=== PATIENT | male | born 1940 | race Caucasian/White ===

== ENCOUNTER 2018-06-17 10:58 | Emergency (ER) | payer MEDICARE, OTHER, SELFPAY ==
[2018-06-17] VITALS (12 sets, daily range): BP systolic 112–152; BP diastolic 70–91; PULSE 67–88; RESP 14–18; TEMP 36.3–37.1; O2SAT 89–98
--- NOTE | 2018-06-17 11:09 | DI.RAD.S_ITS ---
PROCEDURE: XR CHEST 2V INDICATIONS: injury pain TECHNIQUE: 2 views of the chest were acquired. COMPARISON: None. FINDINGS: Surgical changes and devices: Right humeral arthroplasty is present. Lungs and pleura: No pleural effusions or pneumothorax. Lungs are clear. Mediastinum: Mediastinal contours are normal. Heart size is normal. Bones and chest wall: No suspicious bony abnormalities. Soft tissues appear unremarkable. There is a nondisplaced fracture within the lateral right 10th rib. IMPRESSION: Nondisplaced right lateral 10th rib fracture. Dictated by: Veronica Dodson M.D. on 06/17/2018 at 11:41 Approved by: Veronica Dodson M.D. on 06/17/2018 at 11:42
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
--- NOTE | 2018-06-17 11:42 | DI.CT.S_ITS ---
PROCEDURE: CT CHEST ABD PEL W CON INDICATIONS: ruq pain s/p trauma - hepatic injury? TECHNIQUE: After the administration of oral and intravenous contrast, 5 mm thick sections acquired from the lung apices to the symphysis. 5 mm coronal and sagittal reformats were performed, with additional 7 mm coronal MIP reformats through the lungs. For radiation dose reduction, the following was used: automated exposure control, adjustment of mA and/or kV according to patient size. COMPARISON: None. FINDINGS: Image quality: Excellent. CHEST: Lungs and pleura: No acute airspace opacities. No pleural effusions or pneumothorax. Central and peripheral airways appear patent and normal in caliber. Mediastinum: Heart size is normal. No pericardial effusion. No mediastinal or hilar adenopathy by size criteria. Thoracic aorta and central pulmonary arteries are normal in size. Esophagus is normal in caliber. No hiatal hernia. Chest wall: No axillary or supraclavicular adenopathy by size criteria. Thyroid gland is unremarkable. ABDOMEN: Solid organs: Liver is normal in size and enhancement. No visualized hepatic injury. Gallbladder is unremarkable. Biliary system is non dilated. Pancreas enhances normally. Spleen is normal in size and enhancement. No adrenal nodules. Kidneys demonstrate normal size and enhancement, without hydronephrosis. There is a right perirenal focus of low attenuation along the peripheral aspect of the kidney with Hounsfield units measuring 53. It measures 7.4 cm AP by 4.4 cm transverse. Perinephric stranding is also present. Peritoneum and bowel: Bowel loops demonstrate normal wall thickness and caliber. No free fluid or air. Nodes and vessels: No retroperitoneal or mesenteric adenopathy by size criteria. Aorta and inferior vena cava are normal in size. Miscellaneous: No ventral hernias. PELVIS: Genitourinary: Bladder wall thickness is normal. Prostate gland is enlarged. Miscellaneous: No inguinal hernias or adenopathy. Bones: No suspicious bony lesions. No vertebral body compression fractures. It is noted a right lateral 10th rib fracture was identified on chest x-ray, not as well-visualized on current exam. IMPRESSION: 1. A low attenuation collection surrounding a significant portion of the right kidney with Hounsfield units suggestive of hemorrhagic fluid. Appearance is most suggestive of perirenal hematoma. Right lateral 10th rib fracture is noted although less well-visualized on current exam. The above findings were discussed with Dr. Tito Cagle on 06/17/18 at 1:05 PM. Dictated by: Veronica Dodson M.D. on 06/17/2018 at 12:54 Approved by: Veronica Dodson M.D. on 06/17/2018 at 13:08
[2018-06-17] MEDS: HYDROMORPHONE 0.5 MG INJ 1 MG IV ×2 (11:52→13:40)
[2018-06-17] MEDS: TET,DIPH,PERTUSS(ACELL),VAC/PF 0.5 ML SYRINGE IM (11:57)
--- NOTE | 2018-06-17 12:07 | PC.NURSE ---
Right arm from forearm to shoulder w/ abrasions. No active bleeding. + pain w/ palpation to shoulder where he had previous replacement surgery.
[2018-06-17 13:00] LABS: Add Manual Diff / Slide Review NO; Basophils Percent Auto 0.5 % (0-2); Eosinophils Percent Auto 1.3 % (2-4); Hematocrit 49.2 % (41-53); Hemoglobin 16.7 g/dL (13.5-17.5); Lymphocytes Percent Auto 22.5 % (25-40); Mean Corpuscular HGB Conc 33.9 % (30-36); Mean Corpuscular Hemoglobin 30.1 PG (26-34); Mean Corpuscular Volume 88.8 fL (80-100); Monocytes Percent Auto 6.4 % (3-14); Neutrophils Absolute Auto 6100 /uL (3000-5900); Neutrophils Percent Auto 69.3 % (50-75); Platelet Count 163 X10^3/uL (150-400); Prothrombin Time 11.4 SECONDS (10.1-12.7); Red Blood Cell Count 5.55 X10^6/uL (4.5-5.9); Red Cell Distribution Width 13.1 % (11.6-14.8); White Blood Cell Count 8.8 X10^3/uL (4.5-11.0)
[2018-06-17 13:11] LABS: Alanine Aminotransferase 48 IU/L (21-72); Albumin 4.7 g/dL (3.5-5.0); Albumin Globulin Ratio 1.6 (1.0-2.8); Alkaline Phosphatase 45 U/L (38-126); Aspartate Aminotransferase 47 IU/L (17-59); Bilirubin Total 0.7 mg/dL (0.2-1.3); Blood Urea Nitrogen 22 mg/dL (9-20); Calcium 10.8 mg/dL (8.4-10.2); Carbon Dioxide 27 mmol/L (22-32); Chloride 102 mmol/L (98-107); Estimated Glomerular Filt Rate > 60.0 mL/min (>60); Glucose 110 mg/dL (80-110); HEMOLYSIS 19 (0-50); Potassium 4.4 mmol/L (3.4-5.1); Sodium 141 mmol/L (137-145); Total Protein 7.7 g/dL (6.3-8.2)
[2018-06-17 13:12] LABS: Lactate (Lactic Acid) 1.7 mmol/L (0.7-2.1)
[2018-06-17 14:33] LABS: Bacteria Urine None Seen
[2018-06-17 14:46] LABS: Bilirubin Urine UA NEGATIVE (NEGATIVE); Glucose Urine UA NEGATIVE (Normal); Ketones Urine UA TRACE (NEGATIVE); Leukocyte Esterase Urine UA NEGATIVE (NEGATIVE); Nitrite Urine UA Negative (Negative); Occult Blood Urine UA 3+ (Negative); Protein Urine UA 2+ (Negative); Specific Gravity Urine UA 1.015 (1.000-1.035); Urobilinogen Urine UA 0.2 E.U./dL (0.2)
[2018-06-17 14:47] LABS: Appearance Urine UA CLOUDY; Color Urine UA RED
[2018-06-17 14:50] LABS: Amorphous Sediment Urine 2+; Culture Indicated Urine Cult Not Indicated; RBC Urine >100/HPF (0-5/HPF); Squamous Epithelial Cell Urine 0-1 /HPF; WBC Urine 1-5/HPF (0-5/HPF)
[2018-06-17] MEDS: HYDROMORPHONE 1 MG INJ IV (15:56)
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
--- NOTE | 2018-06-17 16:38 | PC.NURSE ---
Placed on 2 l nc oxygen for pulse ox 89-90%. Encouraged to use incentive spirometry.
== END 2018-06-17 17:07 | disposition short-term general hospital (02) ==
PROVIDERS: Emergency Provider Emergency Medicine
DX: S22.39XA Fracture of one rib, unspecified side, initial encounter for closed fracture (principal); S37.001A Unspecified injury of right kidney, initial encounter; V18.2XXA Unspecified pedal cyclist injured in noncollision transport accident in nontraffic accident, initial encounter
CPT/HCPCS: 70450; 71046; 71260; 74177; 80053; 81001; 83605; 85025; 85610; 86850; 86900; 86901; 90471; 96374; 96376; 99284; 99285; 90715; J1170; Q9967

== ENCOUNTER 2018-06-26 14:47 | Inpatient (IN) | payer MEDICARE, OTHER, SELFPAY ==
[2018-06-26] VITALS (14 sets, daily range): BP systolic 110–160; BP diastolic 66–83; PULSE 73–120; RESP 18–20; TEMP 36.8–38.6; O2SAT 91–97
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
--- NOTE | 2018-06-26 15:14 | DI.RAD.S_ITS ---
PROCEDURE: XR CHEST 1V INDICATIONS: Postop fever TECHNIQUE: One view of the chest was acquired. COMPARISON: [facility], CT, CT CHEST ABD PEL W CON, 06/17/2018, 12:02. [facility], CR, XR CHEST 2V, 06/17/2018, 11:00. FINDINGS: Surgical changes and devices: There is a right shoulder prosthesis. Lungs and pleura: Small right effusion and right basilar atelectasis. No pneumothorax. Mediastinum: Mediastinal contours appear normal. Heart size is normal. Bones and chest wall: Mildly displaced right eighth, ninth, and 10th rib fractures are noted. Overlying soft tissues appear unremarkable. 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 Small right effusion and right basilar atelectasis. 2. Mildly displaced right rib fractures. Dictated by: Daina Encarnacion M.D. on 06/26/2018 at 15:34 Approved by: Daina Encarnacion M.D. on 06/26/2018 at 15:37
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
--- NOTE | 2018-06-26 15:26 | PC.NURSE ---
Elliott cath in place. Bag changed to new long bag. Scant urine output in bag before changing. Urine appeared yellow and clear w/o clots / blood.
[2018-06-26 15:29] LABS: Add Manual Diff / Slide Review NO; Basophils Percent Auto 0.7 % (0-2); Eosinophils Percent Auto 0.2 % (2-4); Hematocrit 34.2 % (41-53); Hemoglobin 11.7 g/dL (13.5-17.5); Lymphocytes Percent Auto 8.2 % (25-40); Mean Corpuscular HGB Conc 34.2 % (30-36); Mean Corpuscular Hemoglobin 29.5 PG (26-34); Mean Corpuscular Volume 86.3 fL (80-100); Neutrophils Absolute Auto 9500 /uL (3000-5900); Neutrophils Percent Auto 81.9 % (50-75); Platelet Count 312 X10^3/uL (150-400); Red Blood Cell Count 3.96 X10^6/uL (4.5-5.9); Red Cell Distribution Width 12.8 % (11.6-14.8); White Blood Cell Count 11.6 X10^3/uL (4.5-11.0)
[2018-06-26] MEDS: SODIUM CHLORIDE 0.9% 1,000 ML 125 ML IV ×2 (15:32→21:12)
[2018-06-26] MEDS: SODIUM CHLORIDE 0.9% 1,000 ML 1000 ML IV (15:32)
[2018-06-26 15:45] LABS: Alanine Aminotransferase 56 IU/L (21-72); Albumin 3.8 g/dL (3.5-5.0); Albumin Globulin Ratio 1.3 (1.0-2.8); Alkaline Phosphatase 57 U/L (38-126); Aspartate Aminotransferase 36 IU/L (17-59); Bilirubin Total 0.7 mg/dL (0.2-1.3); Blood Urea Nitrogen 24 mg/dL (9-20); Calcium 9.8 mg/dL (8.4-10.2); Carbon Dioxide 25 mmol/L (22-32); Chloride 97 mmol/L (98-107); Glucose 145 mg/dL (80-110); HEMOLYSIS < 15 (0-50); Lipase 71 U/L (23-300); Potassium 4.3 mmol/L (3.4-5.1); Sodium 133 mmol/L (137-145); Total Protein 6.8 g/dL (6.3-8.2)
[2018-06-26 15:46] LABS: Lactate (Lactic Acid) 1.1 mmol/L (0.7-2.1)
[2018-06-26 16:16] LABS: Appearance Urine UA SL CLOUDY; Bilirubin Urine UA NEGATIVE (NEGATIVE); Color Urine UA YELLOW; Glucose Urine UA NEGATIVE (Normal); Ketones Urine UA NEGATIVE (NEGATIVE); Leukocyte Esterase Urine UA TRACE (NEGATIVE); Nitrite Urine UA Negative (Negative); Occult Blood Urine UA 3+ (Negative); Protein Urine UA 1+ (Negative); Urobilinogen Urine UA 0.2 E.U./dL (0.2); pH Urine UA 5.5 (4.5-8.0)
[2018-06-26 16:25] LABS: Bacteria Urine Few (2-10); RBC Urine 10-30/HPF (0-5/HPF); Squamous Epithelial Cell Urine 0-1 /HPF; WBC Urine 5-10/HPF (0-5/HPF)
[2018-06-26 16:28] LABS: Procalcitonin < 0.05 ng/mL (<0.5)
[2018-06-26] MEDS: CEFTRIAXONE 1 GM/50 ML FROZ.PIGGY IV (18:49)
[2018-06-26] MEDS: IBUPROFEN 400 MG TABLET PO (18:59)
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
[2018-06-26] MEDS: TAMSULOSIN 0.4 MG CAPSULE PO (22:50)
[2018-06-27] VITALS (18 sets, daily range): BP systolic 100–155; BP diastolic 60–100; PULSE 83–120; RESP 16–109; TEMP 36.9–39.3; O2SAT 93–97
[2018-06-27] MEDS: ACETAMINOPHEN 325 MG TABLET 650 MG PO ×2 (00:36→01:00)
[2018-06-27] MEDS: SODIUM CHLORIDE 0.9% 1,000 ML 125 ML IV ×3 (03:29→21:08)
[2018-06-27 05:39] LABS: Add Manual Diff / Slide Review NO; Basophils Percent Auto 0.5 % (0-2); Eosinophils Percent Auto 0.6 % (2-4); Hematocrit 32.3 % (41-53); Lymphocytes Percent Auto 8.1 % (25-40); Mean Corpuscular HGB Conc 34.2 % (30-36); Mean Corpuscular Hemoglobin 29.6 PG (26-34); Mean Corpuscular Volume 86.7 fL (80-100); Monocytes Percent Auto 10.8 % (3-14); Neutrophils Absolute Auto 8000 /uL (3000-5900); Platelet Count 270 X10^3/uL (150-400); Red Blood Cell Count 3.72 X10^6/uL (4.5-5.9); Red Cell Distribution Width 12.9 % (11.6-14.8); White Blood Cell Count 10.1 X10^3/uL (4.5-11.0)
[2018-06-27 05:54] LABS: BUN Creatinine Ratio 13.3 (6-22); Blood Urea Nitrogen 20 mg/dL (9-20); Calcium 9.1 mg/dL (8.4-10.2); Carbon Dioxide 28 mmol/L (22-32); Chloride 101 mmol/L (98-107); Glucose 103 mg/dL (80-110); HEMOLYSIS < 15 (0-50); Potassium 4.4 mmol/L (3.4-5.1); Sodium 134 mmol/L (137-145)
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
[2018-06-27] MEDS: MULTIVITAMIN 1 TABLET 1 TAB PO (09:18)
[2018-06-27] MEDS: ASPIRIN 325 MG TABLET PO (09:18)
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
[2018-06-27] MEDS: PANTOPRAZOLE 20 MG TABLET PO (17:02)
[2018-06-27] MEDS: LISINOPRIL 20 MG TABLET PO (17:02)
[2018-06-27] MEDS: FINASTERIDE 5 MG TABLET PO (17:02)
[2018-06-27] MEDS: hydroCHLOROthiazide 12.5 MG CAPSULE PO (17:02)
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
--- NOTE | 2018-06-27 18:00 | PM.PN.1 ---
Subjective Date Patient Seen: 06/27/18 Time Patient Seen: 13:07 Interval history: Patient notes that there is less discomfort to the right flank region since he was admitted. He seems to feel is already getting better. No nausea no chest pain or shortness of breath. Exam Vital Signs (past 8 hours): - 06/27/18 11:00 06/27/18 14:52 06/27/18 15:10 Temperature 99 F 99.3 F 99.0 F Pulse Rate 100 H 100 H Respiratory Rate 18 18 Blood Pressure 117/61 137/65 H Pulse Oximetry 93 97 06/27/18 16:18 Temperature Pulse Rate Respiratory Rate Blood Pressure Pulse Oximetry 93 Oxygen Delivery Method Room Air Oxygen Flow Rate 0 Narrative Exam Narrative: Physical exam in general appearance Patient is noted awake and alert no apparent distress. Normal healthy male for his age. Psychiatric Awake and alert no apparent distress Skin No rashes or lesions and nonjaundiced turgor normal Respiratory Clear to auscultation no wheezes no crackles Cardiovascular Regular rate and rhythm no murmur rubs or gallops GI Fairly soft nontender positive bowel sounds no masses no distension no guarding Back Mild costovertebral angle tenderness to percussion on the right Neurologic No focal neurologic changes cranial nerves 2-12 grossly intact Objective Labs Result Diagrams: 06/27/18 05:06 06/27/18 05:06 Labs: Laboratory Results - last 24 hr 06/27/18 06/27/18 05:06 05:06 WBC 10.1 RBC 3.72 L Hgb 11.0 L Hct 32.3 L MCV 86.7 MCH 29.6 MCHC 34.2 RDW 12.9 Plt Count 270 Neut % (Auto) 80.0 H Lymph % (Auto) 8.1 L [place] % (Auto) 10.8 Eos % (Auto) 0.6 L Baso % (Auto) 0.5 Neut # (Auto) 8000 H Sodium 134 L Potassium 4.4 Chloride 101 Carbon Dioxide 28 BUN 20 Creatinine 1.50 H Estimated GFR 45.0 L BUN/Creatinine Ratio 13.3 Glucose 103 Calcium 9.1 Assessment & Plan Plan: Assessment/Plan Narrative: 1. Urinary tract infection/pyelonephritis. Possibly the Elliott is the cause of the infection. Patient has a urinary intra urinary stent placed just recently so there's a high risk for deterioration due to the stent and the catheter. Plan is to continue IV antibiotics IV fluids. He is still tachycardic after several L of fluid. Cultures pending. His urinary catheter was repositioned since the balloon in the prostatic urethra and re-positioned so the balloon properly is placed in the bladder. Inpatient status appropriate for this patient. Initial findings are Enterococcus of urine culture. Culture results pending. As discussed with Pharmacist, will change from Rocephin to IV Ampicillin. 2. History of hypertension Continue home meds as tolerated. 3. History of recent kidney lacerations status post injury renal stent and Elliott catheter placement. He is scheduled to follow up with Urology as an outpatient. 4. Multiple Rib fractures with pleural effusion and atelectasis. Potential source of fever in this patient plan to monitor the patient closely. Thus far he is doing reasonably well. Discharge Planning May be suitable for discharge to home in several days. Await further analysis of the Urine Cx. Time Spent With Patient Time with patient: 25 - 35 minutes
[2018-06-27] MEDS: CEFTRIAXONE 2 GM/50 ML FROZ.PIGGY IV (18:12)
[2018-06-27] MEDS: LINEZOLID 600 MG/300 ML IV.SOLN IV (18:45)
[2018-06-27] MEDS: ACETAMINOPHEN 325 MG TABLET 975 MG PO (21:06)
[2018-06-27] MEDS: TAMSULOSIN 0.4 MG CAPSULE PO (21:06)
[2018-06-27] MEDS: ATORVASTATIN 20 MG TABLET 40 MG PO (21:06)
[2018-06-28] VITALS (9 sets, daily range): BP systolic 117–126; BP diastolic 71–86; PULSE 85–97; RESP 16–18; TEMP 36.8–37.2; O2SAT 95–98
[2018-06-28] MEDS: SODIUM CHLORIDE 0.9% 1,000 ML 125 ML IV ×3 (05:46→22:25)
[2018-06-28] MEDS: LINEZOLID 600 MG/300 ML IV.SOLN 300 MG IV (05:47)
[2018-06-28 09:01] LABS: Add Manual Diff / Slide Review NO; Basophils Percent Auto 0.6 % (0-2); Eosinophils Percent Auto 2.6 % (2-4); Hematocrit 36.4 % (41-53); Hemoglobin 12.3 g/dL (13.5-17.5); Lymphocytes Percent Auto 11.9 % (25-40); Mean Corpuscular HGB Conc 33.8 % (30-36); Mean Corpuscular Hemoglobin 29.5 PG (26-34); Mean Corpuscular Volume 87.4 fL (80-100); Monocytes Percent Auto 10.6 % (3-14); Neutrophils Absolute Auto 6300 /uL (3000-5900); Neutrophils Percent Auto 74.3 % (50-75); Platelet Count 359 X10^3/uL (150-400); Red Blood Cell Count 4.16 X10^6/uL (4.5-5.9); Red Cell Distribution Width 13.3 % (11.6-14.8); White Blood Cell Count 8.5 X10^3/uL (4.5-11.0)
[2018-06-28 09:23] LABS: BUN Creatinine Ratio 12.9 (6-22); Blood Urea Nitrogen 18 mg/dL (9-20); Carbon Dioxide 29 mmol/L (22-32); Chloride 101 mmol/L (98-107); Estimated Glomerular Filt Rate 48.8 mL/min (>60); Glucose 126 mg/dL (80-110); HEMOLYSIS < 15 (0-50); Sodium 138 mmol/L (137-145)
[2018-06-28] MEDS: MULTIVITAMIN 1 TABLET 1 TAB PO (09:30)
[2018-06-28] MEDS: ASPIRIN 325 MG TABLET PO (09:30)
[2018-06-28] MEDS: LISINOPRIL 20 MG TABLET PO (16:43)
[2018-06-28] MEDS: FINASTERIDE 5 MG TABLET PO (16:43)
[2018-06-28] MEDS: hydroCHLOROthiazide 12.5 MG CAPSULE PO (16:43)
[2018-06-28] MEDS: PANTOPRAZOLE 20 MG TABLET PO (16:44)
[2018-06-28] MEDS: LINEZOLID 600 MG/300 ML IV.SOLN IV (18:45)
[2018-06-28] MEDS: TAMSULOSIN 0.4 MG CAPSULE PO (20:11)
[2018-06-28] MEDS: ATORVASTATIN 20 MG TABLET 40 MG PO (20:11)
--- NOTE | 2018-06-28 20:17 | P.PN_ITS ---
Exam Vital Signs (past 8 hours): - 06/28/18 12:15 06/28/18 15:30 06/28/18 15:45 Temperature 98.6 F 98.2 F Pulse Rate 89 87 Respiratory Rate 16 18 Blood Pressure 118/74 126/86 H Pulse Oximetry 98 95 98 06/28/18 16:43 Temperature Pulse Rate 87 Respiratory Rate Blood Pressure 126/86 H Pulse Oximetry Oxygen Delivery Method Room Air Oxygen Flow Rate 0 Objective Labs Result Diagrams: 06/28/18 08:42 06/28/18 08:42 Labs: Laboratory Results - last 24 hr 06/28/18 06/28/18 08:42 08:42 WBC 8.5 RBC 4.16 L Hgb 12.3 L Hct 36.4 L MCV 87.4 MCH 29.5 MCHC 33.8 RDW 13.3 Plt Count 359 Neut % (Auto) 74.3 Lymph % (Auto) 11.9 L [place] % (Auto) 10.6 Eos % (Auto) 2.6 Baso % (Auto) 0.6 Neut # (Auto) 6300 H Sodium 138 Potassium 4.0 Chloride 101 Carbon Dioxide 29 BUN 18 Creatinine 1.40 H Estimated GFR 48.8 L BUN/Creatinine Ratio 12.9 Glucose 126 H Calcium 10.0 Assessment & Plan Plan: Assessment/Plan Narrative: 1. Urinary tract infection/pyelonephritis. Possibly, the Elliott is the cause of the UTI infection. Patient has a intra urinary stent placed recently so there's a higher risk for infection. Plan is to continue IV antibiotics and IV fluids. He was tachycardic after several L of fluid but the pulse today is stable and much lower. Cultures reported Enterococcus. His urinary catheter was repositioned since the balloon in the prostatic urethra and re-positioned so the balloon properly is placed in the bladder. As discussed with Pharmacist, will change from Rocephin to IV Lizinolid due to the PCN allergy, so ampicillin not an option. 2. History of hypertension Continue home meds as tolerated. Mood is pleasant and affect appropriate. 3. History of recent kidney lacerations status post injury renal stent and Elliott catheter placement. He is scheduled to follow up with Urology as an outpatient. 4. Multiple Rib fractures with pleural effusion and atelectasis. Potential source of fever in this patient plan to monitor the patient closely. Thus far he is doing reasonably well. Time Spent With Patient Time with patient: 25 - 35 minutes
[2018-06-28] MEDS: ACETAMINOPHEN 325 MG TABLET 975 MG PO (22:26)
[2018-06-29 00:04] VITALS: BP 104/58; PULSE 82; RESP 16; TEMP 36.8; O2SAT 94
[2018-06-29 04:00] VITALS: BP 116/70; PULSE 75; RESP 17; TEMP 36.6; O2SAT 96
[2018-06-29] MEDS: SODIUM CHLORIDE 0.9% 1,000 ML 125 ML IV (06:26)
[2018-06-29] MEDS: LINEZOLID 600 MG/300 ML IV.SOLN IV (06:27)
[2018-06-29 08:00] VITALS: BP 112/70; PULSE 82; RESP 16; TEMP 37.4; O2SAT 95
[2018-06-29] MEDS: MULTIVITAMIN 1 TABLET 1 TAB PO (09:11)
[2018-06-29] MEDS: ASPIRIN 325 MG TABLET PO (09:13)
[2018-06-29 12:00] VITALS: BP 117/72; PULSE 98; RESP 16; TEMP 36.8; O2SAT 94
--- NOTE | 2018-06-29 12:32 | CM.DPC ---
DCP: continued: Spoke with Dr. Wong this morning who advised that pt would be ready for d/c today if linezolid antibiotic if affordable under his insurance. Agreed to followup re details of this. Met then with pt and karoline Huggins. Pt confirms he does have Medicare D for medication coverage and identifies [facility] in [place] as his local pharmacy. Called the pharmacist who confirmed that 600 PO 2xday x 10 days of linezolid would be out of pocked cost: total: $149.00. Pt and Dr. Wong are updated. Dr. Wong will see pt later today with anticipation of d/c.
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
--- NOTE | 2018-06-29 14:03 | PC.NURSE ---
Am shift Pt is continuing to improve with indep ambulation in halls, denies pain. at bedside. Discussed POC, and working toward d/c home when able. Lexi patent. Shower given.
== END 2018-06-29 14:45 | disposition home or self-care (01) | DRG 699 ==
LOC: ED 19:08 → AC 06-27 06:49
PROVIDERS: Internal Medicine; Admitting Provider Internal Medicine; Emergency Provider Emergency Medicine; Visit Provider Internal Medicine
DX: T83.511A Infection and inflammatory reaction due to indwelling urethral catheter, initial encounter (principal); S22.41XA Multiple fractures of ribs, right side, initial encounter for closed fracture; J90 Pleural effusion, not elsewhere classified; S37.031A Laceration of right kidney, unspecified degree, initial encounter; J98.11 Atelectasis; T83.028A Displacement of other urinary catheter, initial encounter; N39.0 Urinary tract infection, site not specified; B95.2 Enterococcus as the cause of diseases classified elsewhere; I10 Essential (primary) hypertension; V18.4XXA Pedal cycle driver injured in noncollision transport accident in traffic accident, initial encounter
CPT/HCPCS: 36415; 36591; 36592; 71045; 74177; 80048; 80053; 81001; 83605; 83690; 84145; 85025; 86850; 86900; 86901; 87040; 87077; 87086; 87186; 93005; 93010; 96361; 96365; 99285; J0696; J2020

== ENCOUNTER 2018-07-01 18:10 | Emergency (ER) | payer MEDICARE, OTHER, SELFPAY ==
[2018-07-01 19:02] VITALS: BP 129/80; PULSE 95; RESP 16; TEMP 36.8; O2SAT 97
--- NOTE | 2018-07-01 21:41 | PC.NURSE ---
Pt w/ indwelling song r/t right ruptured kidney. Recently d/c from [facility] w/ UTI and Sepsis. Currently afebrile. Now w/ bloody urine w/o clots. Happened before when balloon of catheter slipped down and did not stay in place. Verbal order recieved to change catheter. Old removed. New 16fr [address] way catheter placed w/o difficulty. Balloon to 10 cc. Uirne clear yellow after placement. Pt felt well after placement and decided to go home. Taking po fluids. Denies pain. No fever or complaints. Signed VDC form. Encouraged to return if any difficulty or concerns.
[2018-07-01 21:44] VITALS: BP 120/72; PULSE 80; RESP 14; TEMP 36.8; O2SAT 95
--- NOTE | 2018-07-01 21:44 | PC.NURSE ---
Urine cleared to yellow post new catheter insertion.
== END 2018-07-01 21:45 | disposition left against medical advice (07) ==
PROVIDERS: Emergency Provider Emergency Medicine
DX: Z46.6 Encounter for fitting and adjustment of urinary device (principal)
CPT/HCPCS: 51705; 51798; 99282